=== PATIENT | male | born 1985 | race Caucasian/White ===

== ENCOUNTER 2016-12-11 16:20 | Inpatient (IN) ==
[2016-12-11] MEDS ORDERED: ROCEPHIN IM ONE (17:13)
[2016-12-11] MEDS ORDERED: DECADRON IM ONE (17:13)
[2016-12-11] MEDS ORDERED: XYLOCAINE-MPF 1% INJ ONE ×2 (17:13→17:20)
--- NOTE | 2016-12-11 17:15 | PROVIDER DOCUMENTATION ---
Addendum entered and electronically signed by Guerita Chen CRNP 12/12/16 03: 06: Progress - PLAN OF CARE/RESULTS Progress/Plan/Lab Results: After the patient returned from CT in [place] the radiologist called and states the patient had a 5 cm abscess extending from the vocal cords deep into the mediastinum with phlegmans and reactive adenopathy. He recommended immediate intubation. Dr. Montoya notified and he states that is beyond his capabilities and would like the patient sent to [facility]. The patient was moved to room 13 and anesthesia was called for intubation. The patient was accepted for transfer to [facility] by Dr. Jorgensen and it was to be an ER to ER transfer. Dr. Cruz arrived to the ED and the patient at this point states he wants to leave and he doesn't believe that he really needs all the things the ED staff was saying he needed. The severity of the condition was explained to the patient multiple times and he is still refusing any further treatment and state he is going to leave and seek a second opinion. The patients family arrived at the ED and spoke with the patient whom still refused any further treatment and again wants to leave AMA. The patient signed the appropriate forms and left the ED. Dr. Jorgensen at [facility] notified of the change. Departure - Departure Time of Disposition Order: 03:06 DIAGNOSIS: Strep pharyngitis, Tonsillar abscess Disposition: AGAINST MEDICAL ADVICE Certified Medical Emergency: Emergent Condition: Stable Original Note: HPI-EENT General - General Chief Complaint: Sore Throat Stated Complaint: SORE THROAT/CONGESTION Time Seen by Provider: 12/11/16 16:58 Source: patient, family Allergies/Adverse Reactions: Patient Allergies Allergy/AdvReac Type Severity Reaction Status Date / Time No Known Allergies Allergy Verified 12/11/16 17:02 - History of Present Illness-EENT General Nature of Presenting Problem: Pt is a 31 y/o male c chief complaint of sore swollen tonsils x 2 days. Pt states the swelling is primarily on the R. Last week he had swelling to the L. Pt has noted difficulty swallowing oral secretions today. Pt has a h/o morbid obesity. On arrival, pt is in minimal distress. Review of Systems - Adult - REVIEW OF SYSTEMS - ADULT Constitutional: reports: no symptoms reported. denies: chills, fatique Eyes: reports: no symptoms reported. denies: blurred vision, double vision Ears, Nose, Mouth & Throat: reports: mouth swelling, hoarseness, throat pain, throat swelling. denies: ear pain, nose pain Cardiovascular: reports: no symptoms reported. denies: chest pain, orthopnea Respiratory: reports: no symptoms reported. denies: cough, shortness of breath Gastrointestinal: reports: no symptoms reported. denies: abdominal pain, nausea Genitourinary: reports: no symptoms reported. denies: dysuria, hematuria Musculoskeletal: reports: no symptoms reported. denies: joint pain, joint swelling Integumentary: reports: no symptoms reported Neurological: reports: no symptoms reported. denies: ataxia, loss of balance, numbness Psychiatric: reports: no symptoms reported. denies: anxiety, emotional problems Endocrine: reports: no symptoms reported. denies: cold intolerance, heat intolerance Hematologic/Lymphatic: reports: no symptoms reported. denies: blood clots, low blood count Allergic/Immunologic: reports: no symptoms reported. denies: eczema, hives All Other Systems: Reviewed and Negative Past History - Adult - PAST MEDICAL HISTORY-ADULT Review of Records: reports: Old Records Reviewed, Nursing Assessment Review, Medications Reviewed, Social history reviewed & non-contributory. Major Childhood Illnesses: reports: denies history Cardiovascular: reports: denies history Respiratory: reports: denies history Gastrointestinal: reports: denies history Obstetrical/Gynecological: reports: denies history Genitourinary: reports: denies history Musculoskeletal: reports: denies history Neurological: reports: denies history Endocrine/Immune: reports: denies history Other Conditions: reports: denies history - PRIOR SURGERIES/PROCEDURES Surgical/Procedure History: reports: other ([facility] left lower ext 2004) - PRIOR HOSPITALIZATIONS Prior Hospitalizations: reports: none - IMMUNIZATION STATUS Childhood Immunizations: UTD, See Nurse Assessment Flu Vaccine: See Nurse Assessment - FAMILY HISTORY Family History: reviewed, not pertinent - SOCIAL HISTORY Smoking: denies Substance Use: none/never Alcohol Use Frequency: never Living Situation: family Physical Exam- EENT - Physical Exam EENT Initial Vital Signs Reviewed: Yes General Appearance: appears well, alert, no apparent distress Eye Exam: bilateral eye: normal inspection, PERRL, EOMI Ear Exam: bilateral ear: auricle normal, canal normal, TM normal Nasal Exam: normal inspection Throat Exam: dental tenderness, pharynx swelling, pharynx tenderness, tonsillar exudate, tonsillar swelling, uvula swelling, voice changes Neck: supple, tender lateral. negative: trachial deviation Respiratory: chest non-tender, lungs clear, normal breath sounds Cardiovascular: normal peripheral pulses, regular rate, rhythm, no edema Abdominal Exam: normal bowel sounds, non tender, soft Back Exam: normal inspection, no CVA tenderness, no vertebral tenderness Extremity: normal range of motion, non-tender, normal gait Integumentary: normal color, normal turgor, warm/dry Neurologic: grossly normal, no motor/sensory deficits Psych/Mental Status: normal mood/affect, normal thought content, normal thought process, oriented x 3 Progress - PLAN OF CARE/RESULTS Progress/Plan/Lab Results: Orders Category Date Time Status Admit - [facility] Routine AdmDCTranf 12/11/16 20:34 Ordered Activity - Bed Rest with BRP ORDERED Care 12/11/16 20:34 Active Call Admitting on Arrival AT ADMISSION Care 12/11/16 20:35 Active Resuscitation Status Routine Care 12/11/16 20:34 Ordered Saline Loc NOW Care 12/11/16 17:19 Active Vital Signs Order ROUTINE Care 12/11/16 20:34 Active NPO Diet 12/11/16 20:37 Active BASIC METABOLIC PANEL [CHEM] Stat Lab 12/11/16 17:43 Completed CBC WITH ELECTRONIC DIFF [HEME] Stat Lab 12/11/16 17:43 Completed INFLUENZA SCREEN A/B Stat Lab 12/11/16 16:35 Completed Strep [DIRECT STREP] Stat Lab 12/11/16 16:35 Completed 0.9% Sodium Chloride Inj [Ns] 1,000 ml Med 12/11/16 20:45 Active IV 90 mls/hr Ampicillin/Sulbactam 3 gm/Ns [Unasyn 3 gm/Ns] 100 ml Med 12/11/16 20:45 Active IV Q6H CefTRIAXONE 1 GM/NS [Rocephin 1 gm/Ns] 50 ml Med 12/11/16 17:50 Discontinued IV NOW CefTRIAXONE [Rocephin] Med 12/11/16 17:13 Discontinued 1 gm IM NOW ONE CefTRIAXONE [Rocephin] Med 12/11/16 17:20 Discontinued 1 gm IV NOW ONE Clindamycin 900 mg/Ns 50 ml Med 12/11/16 20:45 Active IV Q8H Dexamethasone [Decadron] Med 12/11/16 17:13 Discontinued 10 mg IM NOW ONE Dexamethasone [Decadron] Med 12/11/16 17:19 Discontinued 10 mg IV NOW ONE Dexamethasone [Decadron] Med 12/11/16 20:45 Active 4 mg IV Q6H Hydromorphone [Dilaudid] Med 12/11/16 17:42 Discontinued 1 mg IV NOW ONE Lidocaine 1% Pf [Xylocaine-Mpf 1%] Med 12/11/16 17:13 Discontinued 5 ml INJ NOW ONE Lidocaine 1% Pf [Xylocaine-Mpf 1%] Med 12/11/16 17:20 Discontinued 5 ml INJ NOW ONE Morphine Med 12/11/16 20:34 Active 2 mg IV Q2H PRN PRN Ondansetron [Zofran] Med 12/11/16 20:34 Active 4 mg IV Q4H PRN PRN Promethazine [Phenergan] Med 12/11/16 17:43 Discontinued 12.5 mg IV NOW ONE Sodium Chloride 0.9% Med 12/11/16 17:43 Discontinued 10 ml INJ NOW ONE Oxygen Device Routine Oth 12/11/16 20:36 Active Telemetry [OM.EQ] Routine Oth 12/11/16 20:34 Active Transfer/Admit Order [TRANSFER] Routine Transfer 12/11/16 21:12 Ordered Laboratory Tests 12/11/16 12/11/16 17:43 17:43 WBC 21.76 H RBC 5.36 Hgb 16.9 Hct 49.7 MCV 92.7 MCH 31.5 H MCHC 34.0 RDW Std Deviation 13.0 Plt Count 237 MPV 9.9 Immature Gran % (Auto) 0.5 Neut % (Auto) 80.1 H Lymph % (Auto) 10.2 L Rapides % (Auto) 8.5 Eos % (Auto) 0.5 Baso % (Auto) 0.2 Immature Gran # (Auto) 0.11 H Neut # (Auto) 17.44 H Lymph # (Auto) 2.23 Rapides # (Auto) 1.84 H Eos # (Auto) 0.10 Baso # (Auto) 0.04 Sodium 132 L Potassium 4.1 Chloride 91 L Carbon Dioxide 28 Anion Gap 13 BUN 5 L Creatinine 0.5 L Estimated GFR/1.73 m2 > 60 BUN/Creatinine Ratio 10 Glucose 116 H Calculated Osmolality 263 Calcium 9.7 Vital Signs - 24 hr 12/11/16 16:29 Temperature 98.4 F Pulse Rate 87 Respiratory 20 Rate Blood Pressure 162/78 O2 Sat by Pulse 95 Oximetry - REASSESSMENT Reassessment #1 Time Reassessed: 19:23 ([address] Dr[address] Montoya 2x. We are waiting for a response. Pt is too heavy to fit on the CT scanner. ) Reassessment #2 Time Reassessed: 19:45 (Dr. Montoya's answering service called back asking if he had called. I informed them he had not called yet. I updated family on plan of care. ) Reassessment #3 Time Reassessed: 20:29 (Dr. Montoya at bedside discussing admission vs. surgery.) Reassessment #4 Time Reassessed: 21:04 (Pt has agreed to stay as an in-patient. Dr. Montoya would like to have a CT scan of neck to determine surgical need tonight vs. more conservative therapy. The max wt. of the ct scanner at [facility] is 450lbs. has a scanner that can fit 500lbs. Dr. Montoya will admit to his service. Pt would go to the ICU however there are no ICU beds available. Pt will stay in the ER holding. Dr. Montoya and I discussed the plan to transport the pt to for a CT scan then return to [facility] with the ER charge nurse and Pete MCCARTNEY. While the pt is admitted to Dr. Montoya, Pete Chen will continue to assist in the obtaining of CT and relaying of that information to Dr. Lindsay plata. ) Reassessment #5 Time Reassessed: 21:09 (Pt is stable and was moved to room 1 in the main ED.) - CONSULTS/PCP/HOSPITALIST Notification #1 *Consult/PCP/Hospitalist*: Dr. Montoya (ENT) Time Discussed: 20:15 (Will come into the ER to see pt. ) - CHANGE OF SHIFT REPORT (ED Provider) Report Given and Care Transferred to:: Pete MCCARTNEY Time of Transfer: 21:10 (Pt admitted to Dr. Montoya (ENT). Pete Chen will relay results of CT at to Dr. Montoya.) Items Pending: CT/MRI Results, Physician Consult/Arrival Departure - Departure Time of Disposition Order: 20:29 DIAGNOSIS: Strep pharyngitis, Tonsillar abscess Disposition: ADMITTED INPATIENT 09 Certified Medical Emergency: Emergent Condition: Stable Attestation - Physician/ SHAWN Attestation Patient care was provided by Advanced Practice Provider:: Yes Advanced Practice Provider:: Kennedy Chambers Advanced Practice Provider documentation review:: The Mid-level provider documentation, treatment plan and medical decision making was reviewed by the physician who agrees with all treatment and medical decision making by the MLP. The physician spent face to face time with patient:: Yes
[2016-12-11] MEDS ORDERED: DECADRON IV ONE (17:19)
[2016-12-11] MEDS ORDERED: ROCEPHIN IV ONE (17:20)
[2016-12-11] MEDS ORDERED: DILAUDID IV ONE (17:42)
[2016-12-11] MEDS ORDERED: SODIUM CHLORIDE 0.9% INJ ONE (17:43)
[2016-12-11] MEDS ORDERED: PHENERGAN IV ONE (17:43)
[2016-12-11] MEDS ORDERED: ROCEPHIN 1 GM/NS 50 ML IV ONE (17:50)
[2016-12-11 18:05] LABS: BASO% 0.2 % (0.0-0.8); EOS% 0.5 % (0.0-10.0); HEMATOCRIT 49.7 % (42.0-52.0); HEMOGLOBIN 16.9 g/dL (14.0-18.0); IMM GRAN# 0.11 X1000 (0.0-0.04); IMM GRAN% 0.5 % (0.0-0.5); LYMPH# 2.23 X1000 (1.2-3.4); LYMPH% 10.2 % (20.5-51.1); MANUAL DIFF NEEDED? NO; MCH 31.5 PG (27-31); MCV 92.7 FL (81-99); MONO# 1.84 X1000 (0.11-0.59); MONO% 8.5 % (1.7-9.3); MPV 9.9 FL (7.4-10.4); NEUT% 80.1 % (42.2-75.2); PLT 237 X1000 (130-400); RBC 5.36 XMIL (4.7-6.1)
[2016-12-11 18:14] LABS: AGAP 13; BUN 5 mg/dL (8-22); CALCIUM 9.7 mg/dL (8.8-10.2); CHLORIDE 91 mmol/L (98-107); COSMO 263; POTASSIUM 4.1 mmol/L (3.5-5.1); SODIUM 132 mmol/L (136-145); TCO2 28 mmol/L (25-35)
[2016-12-11] MEDS ORDERED: ZOFRAN IV PRN (20:34)
[2016-12-11] MEDS ORDERED: MORPHINE IV PRN (20:34)
[2016-12-11] MEDS ORDERED: DECADRON IV SCH (20:45)
[2016-12-11] MEDS ORDERED: CLINDAMYCIN 900 MG/NS 50 ML IV SCH (20:45)
[2016-12-11] MEDS ORDERED: NS 1,000 ML IV SCH (20:45)
[2016-12-12] MEDS: SODIUM CHLORIDE IV SCH ×2 (00:25→02:45)
[2016-12-12] MEDS: SULBACTAM IV SCH ×2 (00:25→02:45)
[2016-12-12] MEDS: AMPICILLIN IV SCH ×2 (00:25→02:45)
[2016-12-12 01:30] VITALS: BP 110/57
[2016-12-12] MEDS ORDERED: QUELICIN IV ONE (02:05)
[2016-12-12] MEDS ORDERED: AMIDATE IV ONE (02:05)
[2016-12-12] MEDS ORDERED: AMIDATE ONE (02:06)
[2016-12-12] MEDS ORDERED: NS 1,000 ML ONE (02:07)
[2016-12-12] MEDS ORDERED: QUELICIN ONE (02:07)
--- NOTE | 2016-12-12 04:22 | HISTORY AND PHYSICAL ---
HISTORY OF PRESENT ILLNESS: A 31-year-old who 1 week ago developed left-sided throat pain. This resolved after he took some Keflex that his girlfriend had and then developed right-sided throat pain. He has had poor p.o. intake. Denies airway problems. Has noticed increased work of breathing. States he usually has one episode of tonsillitis a year. Has had no odynophagia, no real dysphagia, though has not eaten today. PAST SURGICAL HISTORY: None. PAST MEDICAL HISTORY: Morbid obesity. MEDICATIONS: None. ALLERGIES: None. REVIEW OF SYSTEMS: Snores. Probable sleep apnea, though no sleep study. Denies diabetes, hypertension, liver disease, thyroid disease, asthma. PHYSICAL EXAMINATION: GENERAL: Morbidly obese white male. Minimal to mild increased work of breathing. NOSE: Clear anteriorly. OROPHARYNX: Tonsils 4+ with erythema. No definite abscess. Floor of mouth clear. Uvula with minimal to mild edema. NECK: Fullness, right neck. Enlarged adenopathy. Minimal tenderness. CARDIOVASCULAR: Normal sinus rhythm. CHEST: Clear. ABDOMEN: Obese. IMPRESSION: Acute tonsillitis, no definite abscess appreciated. Cannot fully evaluate for deep neck abscess. Unable to obtain CT scan due to patient's size. Patient would like to go home. PLAN: Have stressed to patient he needs to be admitted. Found CT scanner in [place] that will accommodate patient. Will send over there for CT scan. Further decisions based on results of CT. Will begin clindamycin and Unasyn along with IV Decadron. Will be admitted to ICU care setting.
== END 2016-12-12 03:05 | disposition left against medical advice (07) | DRG 153 ==
LOC: ED 16:20 → EDIPHOLD 22:15
PROVIDERS: ADMIT Otolaryngology; ATTEND Otolaryngology
DX: J36 Peritonsillar abscess (principal); E66.01 Morbid (severe) obesity due to excess calories; G47.30 Sleep apnea, unspecified
CPT/HCPCS: 80048; 85025; 87430; 87804; J0295; J0330; J0696; J1100; J1170; J2270; J2550; J7030; S0077

== ENCOUNTER 2019-04-06 10:01 | Inpatient (IN) ==
[2019-04-06] MEDS ORDERED: DECADRON IV ONE (10:23)
[2019-04-06] MEDS ORDERED: DUONEB (A & A) INH ONE (10:23)
[2019-04-06 10:56] LABS: BASO# 0.04 X1000 (0.0-0.2); BASO% 0.3 % (0.0-0.8); EOS% 2.1 % (0.0-10.0); HEMATOCRIT 47.7 % (42.0-52.0); HEMOGLOBIN 15.1 g/dL (14.0-18.0); IMM GRAN# 0.03 X1000 (0.0-0.04); IMM GRAN% 0.2 % (0.0-0.5); LYMPH# 2.21 X1000 (1.2-3.4); LYMPH% 15.8 % (20.5-51.1); MCH 29.3 PG (27-31); MCHC 31.7 g/dL (33-37); MCV 92.6 FL (81-99); MONO# 1.02 X1000 (0.11-0.59); MONO% 7.3 % (1.7-9.3); MPV 9.9 FL (7.4-10.4); NEUT# 10.36 X1000 (1.4-6.5); NEUT% 74.3 % (42.2-75.2); PLT 188 X1000 (130-400); RBC 5.15 XMIL (4.7-6.1); RDW 16.7 % (11.5-14.5); WBC 13.96 X1000 (4.8-10.8)
[2019-04-06 11:01] LABS: AGAP 9; ALB/GLOB RATIO 0.9; ALBUMIN 3.8 g/dL (3.5-5.0); ALKALINE PHOSPHATASE 67 U/L (32-122); BUN 10 mg/dL (8-22); CALCIUM 9.3 mg/dL (8.8-10.2); CHLORIDE 96 mmol/L (98-107); COSMO 277; CREATININE 0.5 mg/dL (0.7-1.2); ESTIMATED GFR > 60; GLUCOSE 145 mg/dL (70-104); GOT 14 U/L (10-34); GPT 15 U/L (10-44); POTASSIUM 4.1 mmol/L (3.5-5.1); SODIUM 138 mmol/L (136-145); TCO2 33 mmol/L (25-35); TOTAL BILIRUBIN 0.78 mg/dL (0.20-1.00)
[2019-04-06] MEDS ORDERED: BICILLIN L-A IM ONE (11:48)
--- NOTE | 2019-04-06 11:58 | Diag Imaging Result Doc PS360 ---
CHEST-2 VIEWS - 04/06/2019 INDICATION: short of breath COMPARISON: None FINDINGS: The lungs are normally expanded and clear. Heart size and mediastinal contours are normal. No pneumothorax or pleural effusion. IMPRESSION: Negative exam. Electronically signed by Connor Ruff 04/06/2019 11:55 AM
--- NOTE | 2019-04-06 11:59 | Diag Imaging Result Doc PS360 ---
NECK AP AND/OR LAT SOFT TISSUE - 04/06/2019 INDICATION: throat swelling TECHNIQUE: Two views COMPARISON: None FINDINGS: The soft tissues of the neck are normal. The epiglottis is grossly normal. IMPRESSION: Negative exam. Electronically signed by Connor Ruff 04/06/2019 11:56 AM
[2019-04-06 12:15] LABS: INR 1.01; PROTIME 14.1 Seconds (11.0-16.0)
[2019-04-06 13:24] LABS: ALLEN TEST YES; BE 7.5 mmoll (-3.0-3.0); BLOOD TYPE ARTERIAL; HCO3-(ACT) 30.5 mmoll (20.0-26.0); METHB 1.6 % (0.0-1.5); O2(CT) 19.4 mL/dL (15.0-23.0); PO2(98.6) 57 mmHg (60-100); SAMPLE BLOOD; SAO2 92.6 % (95.0-100.0); THB 15.5 g/dL (11.5-17.4); pH(98.6) 7.37 (7.35-7.45)
[2019-04-06 13:26] LABS: PCO2(98.6) 61 mmHg (35-45)
[2019-04-06 13:27] LABS: MODALITY CANNULA; O2HB 89.1 % (95.0-99.0)
[2019-04-06 13:37] LABS: URINE SOURCE CLEAN CATCH
[2019-04-06 13:43] LABS: BILIRUBIN URINE NEGATIVE (NEGATIVE); COLOR YELLOW; GLUCOSE URINE NEGATIVE (NEGATIVE); KETONE URINE NEGATIVE (NEGATIVE); TURBIDITY URINE CLEAR (CLEAR)
[2019-04-06 13:44] LABS: BLOOD URINE NEGATIVE (NEGATIVE); LEUKOCYTES URINE NEGATIVE (NEGATIVE); NITRITE URINE NEGATIVE (NEGATIVE); PH URINE 7.5; PROTEIN URINE NEGATIVE (NEGATIVE); SP GRAVITY URINE 1.006; UROBILINOGEN URINE NORMAL (NORMAL)
[2019-04-06 13:45] LABS: UR EPITHELIAL CELLS <10 /HPF (<10); URINE BACTERIA NEGATIVE /HPF; URINE RBC <10 /HPF (<10); URINE WBC <10 /HPF (<10)
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
[2019-04-06] MEDS ORDERED: ZOFRAN IV PRN (14:12)
[2019-04-06] MEDS ORDERED: DUONEB (A & A) INH PRN (14:12)
[2019-04-06 14:42] LABS: HEMOGLOBIN A1C 6.4 % (4.8-6.0)
[2019-04-06] MEDS: DUONEB (A & A) INH SCH ×3 (15:39→22:45)
--- NOTE | 2019-04-06 16:38 | HISTORY AND PHYSICAL ---
CHIEF COMPLAINT: Sore throat. HISTORY OF PRESENT ILLNESS: Mr. Mendoza is a 33-year-old male who claims no past medical history. He is morbidly obese at 504 pounds, probably undiagnosed sleep apnea hypoventilation syndrome. He reported to the ED with 2 days' history of sore throat and fever. While in the ED talking, his O2 saturations dropped to 87% on room air. He was placed on supplemental O2, and anytime he takes his O2 off, he drops down to around 87% to 86%. He was found with positive Streptococcus. He was given IM antibiotics and Decadron. He reports he has had 1 episode of this a few years back, had to be placed in the ICU at [facility] because his reasoning was "the antibiotics don't work on (him)." We wanted to do a CTA or V/Q scan to rule out a D- dimer. However, secondary to his size, we were unable to obtain. We will get venous Dopplers to rule out any DVT. ABG showed hypoxic hypercapnic, which is probably around the patient's baseline. However, he feels that he is in his normal state of health besides his throat issues. We will admit him to [facility] overnight with a Pulmonology consult and continue him on supplemental O2 and recheck his ABG and chest x-ray in the a.m. PAST MEDICAL HISTORY: Denies any history. Morbid obesity. PAST SURGICAL HISTORY: Surgery for pyloric stenosis. SOCIAL HISTORY: [facility] is [facility]. FAMILY HISTORY: Unknown. ALLERGIES: None. HOME MEDICATIONS: None. REVIEW OF SYSTEMS: Completely negative except for those mentioned in HPI. PHYSICAL EXAMINATION: VITAL SIGNS: Temperature is 98.3 degrees, heart rate 97, respirations 20, blood pressure 148/77, O2 is 90% on room air. GENERAL: Mr. Mendoza is a morbidly obese 33-year-old male, who is sitting on the side of the bed and speaking with the guard. He does not appear in any acute distress. HEENT: Atraumatic, normocephalic. PERRL. NECK: Really thick. Hard to assess. CARDIOVASCULAR: S1, S2 appreciated. No murmurs, gallops, or rubs noted. RESPIRATORY: Lung sounds clear bilaterally. ABDOMEN: Obese. Positive bowel sounds 4 quadrants. NEUROLOGIC: No focal deficits noted. DIAGNOSTIC DATA: Chest x-ray was a negative exam. Neck x-ray showed soft tissue of the neck was normal. The epiglottis was grossly normal. Negative exam. White count 13, hemoglobin 15, hematocrit 47, platelet count 188,000. Sodium 138, potassium 4.1, BUN 10, creatinine 0.5, blood glucose is 145. ASSESSMENT AND PLAN: 1. Hypoxemic hypercapnic respiratory failure. However, I do believe that this is the patient's baseline. We are going to try to rule him out for PE; however, due to his morbid obesity, he exceeds the weight limit for V/Q scan or CTA. We will do venous Dopplers. He does have probable sleep apnea. The patient has been told that he stops breathing in his sleep as well as probable hypoventilation syndrome. We will ask Dr. Rutledge with Pulmonology for his input. 2. Streptococcal pharyngitis. He was given a shot of IV penicillin and Decadron. We will continue with p.o. Amoxil. 3. Probable sleep apnea. The patient has not had any formal workup. 4. Probable hypoventilation syndrome. 5. Morbid obesity. The patient will need continued counseling on diet and exercise. 6. Elevated D-dimer. We will assess with venous Dopplers. Patient's morbid obesity limits him from getting a CTA or V/Q scan at this time. Follow up pending laboratory, diagnostics, and physician evaluation. Dictated by BIB Maldonado for Casie Adorno MD cc: Casie Adorno MD
[2019-04-06] MEDS: HUMULIN R SUBQ SCH (20:28)
[2019-04-06] MEDS: LOVENOX SUBQ SCH (20:29)
[2019-04-06] MEDS: TYLENOL PO PRN (20:37)
--- NOTE | 2019-04-06 22:24 | PULMONOLOGY CONSULTATION ---
DATE: 04/06/2019 REASON FOR CONSULTATION: Hypoxemic and hypercapnic respiratory failure with strep throat. HISTORY OF PRESENT ILLNESS: Mr. Mendoza is an incarcerated, 33-year-old male with morbid obesity and a BMI of 69, tobacco use prior to incarceration, with history of tonsillitis requiring transport to [facility], who presented to the emergency room with a 2-day history of sore throat and fever. Streptococcal rapid antigen was performed which was positive. Arterial blood gas performed on 5 L per nasal cannula revealed pH 7.37, pCO2 of 61, pO2 of 57. PAST MEDICAL HISTORY/PROBLEM LIST: 1. Morbid obesity with BMI of 69, as per above. 2. Prior treatment for tonsillitis. 3. History of pyloric stenosis. 4. Hypertension. SOCIAL HISTORY: The patient is currently incarcerated. He reports tobacco use. FAMILY HISTORY: Unknown by the patient. REVIEW OF SYSTEMS: Notable for dyspnea on exertion which is chronic. Recent onset difficulty with swallowing. PHYSICAL EXAMINATION: General: Exam reveals a morbidly obese, white male, sitting on the side of his bed eating a popsicle. The patient is conversant with a clear voice. Vital Signs: BP 125/69, heart rate 81, respiratory rate 16 to 20, oxygen saturation 99% on 40% face mask. HEENT: Pupils are equal and reactive. Oropharynx reveals poor dentition with missing and carious teeth. The patient has generous tonsils bilaterally with no evidence of airway obstruction. There is mild erythema in the posterior pharynx. Neck: Thick and supple. Chest: Reveals good air entry bilaterally without wheezing or rhonchi. Cardiac: Regular rate, normal S1, normal S2. Abdomen: Obese and soft. Extremities: Reveal chronic venous insufficiency. LABORATORIES: White blood count 13.9, hemoglobin 15.1, platelet count 188,000. Arterial blood gas as per HPI. Chemistry: Sodium 138, potassium 4.1, chloride 96, bicarbonate 33, BUN 10, creatinine 0.5, glucose 145. Chest x-ray with no evidence of acute disease. Soft tissues of the neck, no evidence of acute disease. IMPRESSION: A 33-year-old with: 1. Chronic hypoxemic and chronic hypercapnic respiratory failure. 2. Acute streptococcal pharyngitis. 3. Super morbid obesity. 4. Poor dentition. 5. Chronic venous insufficiency of the lower extremities. RECOMMENDATION: 1. Agree with antibiotics as you are doing. 2. Wean oxygen as tolerated. It is not clear that he can be on oxygen while in long term and this will have to be worked out through [employer]. 3. Smoking cessation is recommended. 4. Recommend outpatient sleep apnea evaluation. 5. Long-term, patient survival is extremely poor if he cannot lose weight either on his own or through some surgical intervention. cc: Buddy Rutledge MD
[2019-04-07] MEDS: DUONEB (A & A) INH SCH ×6 (03:23→23:27)
[2019-04-07 04:53] LABS: ALLEN TEST YES; BE 7.2 mmoll (-3.0-3.0); BLOOD TYPE ARTERIAL; HCO3-(ACT) 30.4 mmoll (20.0-26.0); METHB 1.1 % (0.0-1.5); O2(CT) 20.1 mL/dL (15.0-23.0); O2HB 93.4 % (95.0-99.0); PO2(98.6) 79 mmHg (60-100); SAMPLE BLOOD; SAO2 96.6 % (95.0-100.0); THB 15.3 g/dL (11.5-17.4)
[2019-04-07 04:55] LABS: MODALITY VENTIMASK; PCO2(98.6) 75 mmHg (35-45)
[2019-04-07] MEDS: PRILOSEC PO SCH ×2 (05:13→06:08)
[2019-04-07 05:39] LABS: BASO# 0.02 X1000 (0.0-0.2); BASO% 0.2 % (0.0-0.8); HEMATOCRIT 48.7 % (42.0-52.0); HEMOGLOBIN 15.2 g/dL (14.0-18.0); IMM GRAN# 0.03 X1000 (0.0-0.04); IMM GRAN% 0.2 % (0.0-0.5); LYMPH% 8.9 % (20.5-51.1); MCH 29.5 PG (27-31); MCHC 31.2 g/dL (33-37); MCV 94.4 FL (81-99); MONO% 5.7 % (1.7-9.3); MPV 10.1 FL (7.4-10.4); PLT 216 X1000 (130-400); RBC 5.16 XMIL (4.7-6.1); RDW 16.1 % (11.5-14.5); WBC 12.35 X1000 (4.8-10.8)
[2019-04-07 06:01] LABS: AGAP 9; BUN 10 mg/dL (8-22); CALCIUM 9.4 mg/dL (8.8-10.2); CHLORIDE 95 mmol/L (98-107); COSMO 278; CREATININE 0.5 mg/dL (0.7-1.2); ESTIMATED GFR > 60; GLUCOSE 152 mg/dL (70-104); POTASSIUM 4.2 mmol/L (3.5-5.1); SODIUM 138 mmol/L (136-145); TCO2 34 mmol/L (25-35)
[2019-04-07] MEDS: HUMULIN R SUBQ SCH ×4 (06:07→21:57)
[2019-04-07] MEDS: AMOXIL PO SCH ×2 (08:32→21:57)
[2019-04-07] MEDS: NORCO-5 PO PRN ×2 (08:54→17:39)
[2019-04-07] MEDS ORDERED: CHLORASEPTIC SPRAY MT PRN (08:56)
--- NOTE | 2019-04-07 11:00 | ECHO REPORT ---
ORDER DATE: 04/06/2019 SUMMARY: 1. Very difficult study for interpretation due to very limited acoustic window quality. Intravenous echo contrast agent Optison was utilized to enhance endocardial definition. 2. Aortic valve is not well imaged, but appears to open adequately on 2-dimensional images. Peak gradient across the aortic valve is 18 mmHg and is likely elevated due to hyperdynamic left ventricle. There does not appear to be any significant aortic stenosis. Mitral and tricuspid valves are without gross structural abnormality. Pulmonic valve is not seen. There appears to be at least mild tricuspid regurgitation which is not well imaged on color Doppler. The estimated systolic PA pressure by Doppler is 50 mmHg, suggesting moderate pulmonary hypertension. The aortic root is grossly normal in size. 3. Normal left ventricular chamber size with probable mild concentric left ventricular hypertrophy. Estimated left ventricular ejection fraction appears to be at least 75% with left ventricle appearing hyperdynamic. No focal wall motion abnormality can be appreciated. Left atrium, right atrium, and right ventricle are grossly normal in size with grossly preserved right ventricular systolic function. 4. No pericardial effusion. 5. Inferior vena cava not well demonstrated. CONCLUSIONS: 1. Very difficult study for interpretation. 2. At least mild tricuspid regurgitation with moderate pulmonary hypertension. 3. Probable mild concentric left ventricular hypertrophy with hyperdynamic left ventricle and estimated ejection fraction of at least 75%. cc: Storm Benitez MD
--- NOTE | 2019-04-07 12:52 | PROGRESS NOTE ---
DATE: 04/07/2019 SUBJECTIVE: The patient is sitting at the edge of the bed. He states that he feels fine. He denies having any shortness of breath. OBJECTIVE: Vital Signs: Temperature 97.6 degrees, blood pressure 131/55, heart rate 77, respirations 19, O2 saturation 99% on 3 L nasal cannula. General: This is a morbidly obese male sitting at the edge of the bed in no acute distress. Head: Normocephalic, atraumatic. Heart: S1, S2 normal. Regular rate and rhythm. Lungs: Equal air entry bilaterally. No crackles. No rales. Abdomen: Positive bowel sounds. Soft, nontender, nondistended. Extremities: The patient has chronic venous stasis involving both legs. Neurologic: The patient is alert and oriented x4. LABS: White blood cell count 12, hemoglobin 15, hematocrit 48, platelets 216. ABG: The pH is 7.3, pCO2 75, PO2 79, bicarbonate 30. Sodium 138, potassium 4.2, chloride 95, CO2 34. BUN 10, creatinine 0.5, glucose 152. ASSESSMENT AND PLAN: 1. Acute on chronic hypoxemic and hypercapnic respiratory failure. Multifactorial. The patient is morbidly obese. He also has moderate pulmonary hypertension. We will continue with supplemental oxygen. 2. Streptococcal pharyngitis. Continue with antibiotic therapy. 3. Suspected obstructive sleep apnea. The patient has been counseled about weight loss and proper diet. He will likely require a sleep study as outpatient once he is out of half-way. 4. Suspected hypoventilation syndrome. Aware. 5. Leukocytosis. Improved. 6. Diabetes mellitus type 2. Will consult the boarder steam. Start metformin. 7. Gastrointestinal prophylaxis. Continue on Prilosec. 8. Deep vein thrombosis prophylaxis. Continue on Lovenox. cc: Casie Adorno MD MTDD
[2019-04-07] MEDS: GLUCOPHAGE PO SCH (17:35)
[2019-04-07] MEDS: LOVENOX SUBQ SCH (21:57)
[2019-04-08] MEDS: DUONEB (A & A) INH SCH ×6 (03:23→23:15)
[2019-04-08 04:39] LABS: ALLEN TEST YES; BE 6.7 mmoll (-3.0-3.0); BLOOD TYPE ARTERIAL; HCO3-(ACT) 30.1 mmoll (20.0-26.0); O2(CT) 20.7 mL/dL (15.0-23.0); O2HB 95.2 % (95.0-99.0); PO2(98.6) 99 mmHg (60-100); SAMPLE BLOOD; SAO2 98.3 % (95.0-100.0); THB 15.4 g/dL (11.5-17.4); pH(98.6) 7.24 (7.35-7.45)
[2019-04-08 04:40] LABS: MODALITY VENTIMASK; PCO2(98.6) 89 mmHg (35-45)
[2019-04-08 05:58] LABS: HEMOGLOBIN 15.1 g/dL (14.0-18.0); MCHC 30.8 g/dL (33-37); MCV 97.2 FL (81-99); MPV 9.9 FL (7.4-10.4); RBC 5.04 XMIL (4.7-6.1); RDW 16.6 % (11.5-14.5); WBC 13.02 X1000 (4.8-10.8)
[2019-04-08] MEDS: HUMULIN R SUBQ SCH ×4 (06:05→20:29)
[2019-04-08 06:16] LABS: AGAP 8; BUN 12 mg/dL (8-22); CALCIUM 9.4 mg/dL (8.8-10.2); CHLORIDE 95 mmol/L (98-107); COSMO 276; CREATININE 0.5 mg/dL (0.7-1.2); ESTIMATED GFR > 60; GLUCOSE 110 mg/dL (70-104); POTASSIUM 4.6 mmol/L (3.5-5.1); SODIUM 138 mmol/L (136-145); TCO2 35 mmol/L (25-35)
[2019-04-08] MEDS: PRILOSEC PO SCH (06:21)
[2019-04-08] MEDS: AMOXIL PO SCH ×2 (08:37→20:38)
[2019-04-08] MEDS: GLUCOPHAGE PO SCH ×2 (08:37→17:26)
[2019-04-08 08:39] LABS: BLOOD TYPE ARTERIAL; SAMPLE BLOOD
[2019-04-08 08:40] LABS: ALLEN TEST YES; BE 8.6 mmoll (-3.0-3.0); HCO3-(ACT) 31.1 mmoll (20.0-26.0); METHB 0.9 % (0.0-1.5); O2(CT) 16.8 mL/dL (15.0-23.0); SAO2 82.7 % (95.0-100.0); SRATE 16 BPM; pH(98.6) 7.21 (7.35-7.45)
[2019-04-08 08:41] LABS: MODALITY BI PAP; O2HB 80.1 % (95.0-99.0); PCO2(98.6) 103 mmHg (35-45); PO2(98.6) 47 mmHg (60-100)
[2019-04-08 10:22] LABS: BLOOD TYPE ARTERIAL; SAMPLE BLOOD
[2019-04-08 10:23] LABS: ALLEN TEST YES; BE 7.3 mmoll (-3.0-3.0); HCO3-(ACT) 30.6 mmoll (20.0-26.0); MODALITY BI PAP; O2(CT) 20.5 mL/dL (15.0-23.0); O2HB 96.6 % (95.0-99.0); PO2(98.6) 144 mmHg (60-100); SAO2 99.5 % (95.0-100.0); SRATE 20 BPM; THB 14.9 g/dL (11.5-17.4); pH(98.6) 7.23 (7.35-7.45)
[2019-04-08 10:24] LABS: PCO2(98.6) 93 mmHg (35-45)
[2019-04-08] MEDS ORDERED: LASIX IV ONE (11:21)
--- NOTE | 2019-04-08 12:55 | PROGRESS NOTE ---
DATE: 04/08/2019 SUBJECTIVE: The patient is sitting up at the edge of the bed. However, he is somewhat sleepy and lethargic. OBJECTIVE: Vital Signs: Temperature 97.8 degrees, blood pressure 138/65, heart rate 66, respirations 15, O2 saturation is 100% on BiPAP. General: This is a morbidly obese male sitting at the edge of the bed on BiPAP. HEENT: Head normocephalic, atraumatic. Heart: S1, S2 normal. Regular rate and rhythm. Lungs: Equal air entry bilaterally. Diminished breath sounds bilaterally. Abdomen: Obese, soft, nontender. Extremities: The patient has chronic venous stasis with trace edema. Neurologic: The patient is lethargic but will awaken and answer questions appropriately. LABORATORY DATA: White blood cell count 13, hemoglobin 15, hematocrit 49, platelets 187,000. ABG: pH 7.21, pCO2 89, PO2 99, bicarb 30. ASSESSMENT AND PLAN: 1. Acute on chronic hypoxemic and hypercapnic respiratory failure, multifactorial. The patient is now on BiPAP. Further management as per the ict project manager. 2. Suspected hypoventilation syndrome. Aware. 3. Morbid obesity. The patient has been counseled about weight loss and proper diet. 4. Diabetes mellitus type 2. Continue on metformin. 5. Streptococcus pharyngitis. Continue with antibiotic therapy. 6. Gastrointestinal prophylaxis. Continue on Prilosec. 7. Deep vein thrombosis prophylaxis. Continue on Lovenox. cc: Casie Adorno MD
[2019-04-08] MEDS: LOVENOX SUBQ SCH (20:38)
--- NOTE | 2019-04-08 20:54 | PULMONOLOGY PROGRESS NOTE ---
DATE: 04/08/2019 SUBJECTIVE: The patient is sitting on the side of the bed. He reports he is just waking up. The patient's oxygen saturation does drop in the evening and he has evidence of hypoxemic and hypercapnic respiratory failure, and his arterial blood gases will be reviewed below. He is without specific complaints now. OBJECTIVE: Blood pressure 138/65, heart rate 66, respiratory rate 15, oxygen saturation 100%. HEENT: Pupils are equal and reactive. Oropharynx appears clear. He has mild increase in tonsillar size, but the airway is patent and the erythema is decreasing. Neck is nontender. Chest reveals shallow breath sounds with crackles in the lung bases. Cardiac exam: S1, S2. Abdomen is obese. Extremities reveal chronic venous insufficiency. LABORATORY DATA: Arterial blood gas this morning revealed a pH of 7.24, pCO2 of 89, pO2 of 99 on 40% face mask. Arterial blood gas on BiPAP revealed a pH of 7.21, pCO2 of 103, pO2 of 47. Second arterial blood gas on BiPAP revealed a pH of 7.23, pCO2 of 93, pO2 of 144. IMPRESSION: A 33-year-old with morbid obesity, obstructive sleep apnea, pickwickian syndrome and moderate pulmonary hypertension identified on echocardiogram. The patient most likely has been having episodes of hypoxemic and hypercapnic respiratory failure at night for a long period of time, given his body habitus, but because he has not been in a hospital setting this has not been documented. He currently is on nasal cannula and is in no distress. RECOMMENDATIONS: 1. Avoid sedatives or pain medications. 2. Single dose of Lasix to see if he diureses. 3. Continue nocturnal BiPAP. 4. Long-term, the patient will need to lose weight and will need a sleep study. cc: Buddy Rutledge MD
--- NOTE | 2019-04-08 21:42 | Extremity Venous Study ---
PROCEDURE NAME: Venous U/S Bilateral Legs - 04/06/2019 CASTING ASSISTANT: Radha. REQUESTING PHYSICIAN: Kyree. INDICATION: Swelling in the legs. FINDINGS: Deep and superficial veins of bilateral lower extremities were visualized. This was a very limited study due to the patient weighing over 500 pounds, and the calf veins were incompletely identified. Otherwise, the veins visualized in the more proximal leg showed compressibility with flow, and no evidence of deep venous thrombus. SUMMARY: No obvious thrombus noted on this limited study. cc: MD Casie Bruno MD
[2019-04-08] MEDS: NORCO-5 PO PRN (22:07)
[2019-04-09] MEDS: DUONEB (A & A) INH SCH ×6 (03:07→23:18)
[2019-04-09 05:03] LABS: ALLEN TEST YES; BE 11.3 mmoll (-3.0-3.0); BLOOD TYPE ARTERIAL; HCO3-(ACT) 33.7 mmoll (20.0-26.0); O2(CT) 18.9 mL/dL (15.0-23.0); O2HB 94.8 % (95.0-99.0); PO2(98.6) 104 mmHg (60-100); SAMPLE BLOOD; THB 14.1 g/dL (11.5-17.4); pH(98.6) 7.25 (7.35-7.45)
[2019-04-09 05:06] LABS: MODALITY BI PAP; PCO2(98.6) 98 mmHg (35-45)
[2019-04-09 06:02] LABS: BASO# 0.03 X1000 (0.0-0.2); BASO% 0.3 % (0.0-0.8); EOS# 0.16 X1000 (0.0-0.7); EOS% 1.6 % (0.0-10.0); HEMATOCRIT 48.7 % (42.0-52.0); HEMOGLOBIN 14.8 g/dL (14.0-18.0); IMM GRAN# 0.04 X1000 (0.0-0.04); IMM GRAN% 0.4 % (0.0-0.5); LYMPH% 21.1 % (20.5-51.1); MCH 29.7 PG (27-31); MCHC 30.4 g/dL (33-37); MCV 97.8 FL (81-99); MONO# 0.75 X1000 (0.11-0.59); MONO% 7.6 % (1.7-9.3); MPV 9.7 FL (7.4-10.4); NEUT# 6.85 X1000 (1.4-6.5); PLT 193 X1000 (130-400); RBC 4.98 XMIL (4.7-6.1); WBC 9.93 X1000 (4.8-10.8)
[2019-04-09] MEDS: HUMULIN R SUBQ SCH ×4 (06:19→20:49)
[2019-04-09] MEDS: PRILOSEC PO SCH (06:22)
[2019-04-09 06:44] LABS: AGAP 6; BUN 12 mg/dL (8-22); CALCIUM 8.5 mg/dL (8.8-10.2); CHLORIDE 92 mmol/L (98-107); COSMO 277; CREATININE 0.5 mg/dL (0.7-1.2); ESTIMATED GFR > 60; GLUCOSE 127 mg/dL (70-104); POTASSIUM 4.8 mmol/L (3.5-5.1); SODIUM 138 mmol/L (136-145); TCO2 40 mmol/L (25-35)
[2019-04-09] MEDS: AMOXIL PO SCH ×2 (08:42→20:49)
[2019-04-09] MEDS: GLUCOPHAGE PO SCH ×2 (08:42→16:25)
[2019-04-09] MEDS ORDERED: LASIX IV ONE ×2 (09:50→18:00)
[2019-04-09] MEDS ORDERED: DIAMOX IV ONE (15:45)
--- NOTE | 2019-04-09 15:58 | PULMONOLOGY PROGRESS NOTE ---
DATE: 04/09/2019 SUBJECTIVE: The patient is sleeping on BiPAP. He appears to be comfortable. He does take his BiPAP off and eat without difficulty. OBJECTIVE: Vital Signs: The patient has been afebrile for the last 24 hours. Blood pressure 126/73, heart rate 72, respiratory rate 17, oxygen saturation 96% on BiPAP, which he is reluctant to use. HEENT: Pupils are equal and reactive. Oropharynx is clear. Neck: Neck is supple. Chest: Reveals good air entry bilaterally while on BiPAP. Cardiac exam: S1, S2. Abdomen: Obese and soft. Extremities: Reveal chronic venous insufficiency with edema. LABORATORIES: Sodium 138, potassium 4.8, chloride 92, bicarbonate 40. BUN 12, creatinine 0.5. Arterial blood gas reveals pH 7.25, pCO2 of 98, PO2 of 104 on BiPAP. IMPRESSION: A 33-year-old with morbid obesity, obstructive sleep apnea, Pickwickian syndrome, moderate pulmonary hypertension, chronic hypoxemic and chronic hypercapnic respiratory is suspected. I suspect that he has been having chronic hypoxemia and hypercapnia for a period of time, but this just has not been documented. RECOMMENDATION: 1. Avoid sedatives and pain medicines. 2. We will give a dose of Lasix and acetazolamide. 3. Continue nocturnal BiPAP. 4. Long-term, patient is to lose weight and undergo sleep study. cc: Buddy Rutledge MD
[2019-04-09] MEDS ORDERED: STERILE WATER INJ. ONE (16:29)
--- NOTE | 2019-04-09 18:25 | PROGRESS NOTE ---
DATE: 04/09/2019 SUBJECTIVE: The patient is sitting at the edge of the bed. He is currently on BiPAP. He is a little sleepy. OBJECTIVE: Vital signs: Temperature 98.2 degrees, blood pressure 126/73, heart rate 72, respirations 17, O2 saturation is 93% on BiPAP. General: This is a morbidly obese male sitting in bed in no acute distress.Heart: S1, S2 normal. Regular rate and rhythm. Lungs: Diminished breath sounds bilaterally. No wheezing. No rales. Abdomen: Positive bowel sounds. Soft, obese. Extremities: The patient has chronic venous stasis. LABORATORY DATA: ABG with pH of 7.25, pCO2 is 98, pO2 is 104, bicarbonate 33. Sodium 138, potassium 4.8, chloride 92, CO2 of 40, BUN 12, creatinine 0.5, glucose 127. ASSESSMENT AND PLAN: 1. Chronic hypoxemic and hypercapnic respiratory failure. Continue with the current treatment regimen as directed by Dr. Rutledge. 2. Streptococcus pharyngitis. Continue with antibiotic therapy. 3. Moderate pulmonary hypertension. Aware. 4. Pickwickian syndrome. Aware. 5. Obstructive sleep apnea. The patient will likely require a sleep study as outpatient. 6. Morbid obesity. The patient has been counseled about weight loss and proper diet. 7. Diabetes mellitus type 2. Continue on metformin and sliding scale insulin. 8. Deep vein thrombosis prophylaxis. Continue on Lovenox. cc: Casie Adorno MD MTDD
[2019-04-09] MEDS: LOVENOX SUBQ SCH (20:49)
[2019-04-10] MEDS: DUONEB (A & A) INH SCH ×6 (03:16→22:37)
[2019-04-10 04:53] LABS: ALLEN TEST YES; BLOOD TYPE ARTERIAL; HCO3-(ACT) 34.1 mmoll (20.0-26.0); O2(CT) 19.8 mL/dL (15.0-23.0); O2HB 91.5 % (95.0-99.0); PO2(98.6) 62 mmHg (60-100); SAMPLE BLOOD; SAO2 94.6 % (95.0-100.0); THB 15.4 g/dL (11.5-17.4); pH(98.6) 7.33 (7.35-7.45)
[2019-04-10 04:55] LABS: MODALITY BI PAP; PCO2(98.6) 80 mmHg (35-45)
[2019-04-10] MEDS: HUMULIN R SUBQ SCH ×5 (06:06→21:15)
[2019-04-10] MEDS: PRILOSEC PO SCH (06:30)
[2019-04-10 06:31] LABS: BASO# 0.03 X1000 (0.0-0.2); BASO% 0.2 % (0.0-0.8); EOS% 1.7 % (0.0-10.0); HEMATOCRIT 48.2 % (42.0-52.0); HEMOGLOBIN 14.9 g/dL (14.0-18.0); IMM GRAN# 0.04 X1000 (0.0-0.04); IMM GRAN% 0.3 % (0.0-0.5); LYMPH# 1.94 X1000 (1.2-3.4); LYMPH% 16.1 % (20.5-51.1); MCH 29.7 PG (27-31); MCHC 30.9 g/dL (33-37); MCV 96.2 FL (81-99); MONO# 1.17 X1000 (0.11-0.59); MONO% 9.7 % (1.7-9.3); MPV 10.5 FL (7.4-10.4); NEUT# 8.67 X1000 (1.4-6.5); PLT 197 X1000 (130-400); RBC 5.01 XMIL (4.7-6.1); RDW 15.2 % (11.5-14.5); WBC 12.05 X1000 (4.8-10.8)
[2019-04-10 06:47] LABS: AGAP 1; BUN 9 mg/dL (8-22); CALCIUM 9.2 mg/dL (8.8-10.2); CHLORIDE 91 mmol/L (98-107); COSMO 273; CREATININE 0.4 mg/dL (0.7-1.2); ESTIMATED GFR > 60; GLUCOSE 133 mg/dL (70-104); POTASSIUM 3.9 mmol/L (3.5-5.1); SODIUM 136 mmol/L (136-145); TCO2 44 mmol/L (25-35)
[2019-04-10] MEDS: GLUCOPHAGE PO SCH ×2 (09:08→16:40)
[2019-04-10] MEDS: AMOXIL PO SCH ×2 (09:08→21:09)
[2019-04-10] MEDS ORDERED: DIAMOX IV ONE ×2 (09:49→16:00)
[2019-04-10] MEDS ORDERED: LASIX IV ONE ×2 (09:49→16:00)
[2019-04-10] MEDS ORDERED: STERILE WATER INJ. ONE ×2 (10:36→16:43)
--- NOTE | 2019-04-10 17:23 | PROGRESS NOTE ---
DATE: 04/10/2019 SUBJECTIVE: The patient is sitting at the edge of the bed on BiPAP. No acute events noted overnight. OBJECTIVE: Vital Signs: Temperature 98.7 degrees, blood pressure 119/48, heart rate 76, respirations 18, O2 saturation 94%. General: This is a morbidly obese male sitting at the edge of the bed on BiPAP. HEENT: Head normocephalic, atraumatic. Heart: S1, S2 normal. Lungs: Diminished breath sounds bilaterally. Abdomen: Morbidly obese, soft, nontender. Extremities: The patient has chronic venous stasis. LABORATORY DATA: Reviewed. ASSESSMENT AND PLAN: 1. Chronic hypoxemic and hypercapnic respiratory failure. Continue with the current treatment regimen as directed by Dr. Rutledge. 2. Streptococcus pharyngitis. Continue with antibiotic therapy. 3. Morbid obesity. The patient has been counseled about weight loss and proper diet. 4. Moderate pulmonary hypertension. Aware. 5. Pickwickian syndrome. Aware. 6. Obstructive sleep apnea. The patient will need a sleep study as outpatient. 7. Diabetes mellitus type 2. Continue on metformin and sliding scale insulin. 8. Deep vein thrombosis prophylaxis. Continue on Lovenox. cc: Casie Adorno MD MTDD
--- NOTE | 2019-04-10 18:48 | PULMONOLOGY PROGRESS NOTE ---
DATE: 04/10/2019 SUBJECTIVE: Patient is awake, alert, and conversant. He took his BiPAP off and does not want to wear it during the daytime. OBJECTIVE: Vital Signs: The patient has been afebrile for the last 24 hours. Intake and output are difficult to quantitate, given incontinent voids. Blood pressure 119/48, heart rate 76, respiratory rate 18, oxygen saturation 94%. HEENT: Pupils are equal and reactive. Oropharynx appears clear with significant decrease in posterior pharyngeal erythema. Neck: Supple. Chest: Distant breath sounds bilaterally without wheezing or rhonchi. Cardiac: S1, S2, with distant heart sounds. Abdomen: Obese and soft. Extremities: 1+ peripheral edema with chronic venous insufficiency. LABORATORIES: Arterial blood gas reveals pH of 7.33, pCO2 of 80, pO2 of 62. Sodium 136, potassium 3.9, chloride 91, bicarbonate 34, BUN 9, creatinine 0.4. IMPRESSION: A 33-year-old with: 1. Morbid obesity. 2. Pickwickian syndrome. 3. Obstructive sleep apnea. 4. Pulmonary hypertension. 5. Chronic hypoxemic and chronic hypercapnic respiratory failure. 6. Patient was given Lasix and Diamox yesterday, but even with the Diamox, his serum bicarbonate increased, suggesting significant diuresis. He has likely been hypoxemic and hypercapnic for a long time given his body habitus. RECOMMENDATIONS: 1. Additional Lasix and Diamox today. 2. Avoid sedatives and pain medicines. 3. Continue nocturnal BiPAP. 4. Patient will likely require oxygen, weight loss, and a sleep study. cc: Buddy Rutledge MD
[2019-04-10] MEDS: LOVENOX SUBQ SCH (21:09)
[2019-04-11] MEDS: DUONEB (A & A) INH SCH ×6 (03:35→23:15)
[2019-04-11 06:00] LABS: AGAP 9; BUN 12 mg/dL (8-22); CALCIUM 9.6 mg/dL (8.8-10.2); CHLORIDE 93 mmol/L (98-107); COSMO 274; CREATININE 0.5 mg/dL (0.7-1.2); ESTIMATED GFR > 60; GLUCOSE 147 mg/dL (70-104); MAGNESIUM 1.8 mg/dL (1.5-2.7); SODIUM 136 mmol/L (136-145); TCO2 34 mmol/L (25-35)
[2019-04-11] MEDS: HUMULIN R SUBQ SCH ×4 (06:00→20:52)
[2019-04-11] MEDS: PRILOSEC PO SCH (06:01)
[2019-04-11] MEDS: GLUCOPHAGE PO SCH ×2 (08:30→17:25)
[2019-04-11] MEDS: AMOXIL PO SCH ×2 (08:30→20:41)
[2019-04-11 09:26] LABS: BLOOD TYPE ARTERIAL; SAMPLE BLOOD
[2019-04-11 09:27] LABS: ALLEN TEST YES; BE 8.2 mmoll (-3.0-3.0); HCO3-(ACT) 31.2 mmoll (20.0-26.0); METHB 1.2 % (0.0-1.5); O2(CT) 21.8 mL/dL (15.0-23.0); PO2(98.6) 68 mmHg (60-100); SAO2 96.5 % (95.0-100.0); THB 16.7 g/dL (11.5-17.4); pH(98.6) 7.37 (7.35-7.45)
[2019-04-11 09:28] LABS: MODALITY CANNULA; PCO2(98.6) 63 mmHg (35-45)
--- NOTE | 2019-04-11 16:31 | PROGRESS NOTE ---
DATE: 04/11/2019 SUBJECTIVE: The patient is resting in bed. He has no complaints. OBJECTIVE: Vital Signs: Temperature 97.8 degrees, blood pressure 114/97, heart rate 85, respirations 19, O2 saturation 92% on 6 L nasal cannula. General: This is a morbidly obese male, lying in bed in no acute distress. Heart: S1, S2 normal. Regular rate and rhythm. Lungs: Equal air entry bilaterally. No crackles. No rales. Abdomen: Positive bowel sounds. Soft, obese. Nontender. Extremities: Trace edema. The patient has chronic venous stasis. Neurologic: The patient is alert and oriented x3. LABORATORIES: ABG: PH of 7.37, pCO2 of 63, PO2 of 68, bicarbonate 31. Sodium 136, potassium 4, chloride 93, CO2 of 34, BUN 12, creatinine 0.5, glucose 147, magnesium 1.8. ASSESSMENT AND PLAN: 1. Chronic hypoxemic and hypercapnic respiratory failure. Continue with the current treatment plan as directed by Dr. Rutledge. 2. Streptococcus pharyngitis. The patient is on antibiotic therapy. 3. Moderate pulmonary hypertension. Aware. 4. Pickwickian syndrome. Aware. 5. Morbid obesity. The patient has been counseled about weight loss and proper diet. 6. Obstructive sleep apnea. The patient will need a sleep study as outpatient. 7. Diabetes mellitus, type 2. Continue on metformin and sliding scale insulin. 8. Deep vein thrombosis prophylaxis. Continue on Lovenox. cc: Casie Adorno MD
[2019-04-11] MEDS ORDERED: LASIX IV ONE (16:59)
--- NOTE | 2019-04-11 20:33 | PULMONOLOGY PROGRESS NOTE ---
DATE: 04/11/2019 SUBJECTIVE: The patient is awake, alert, and conversant. He is without complaints. OBJECTIVE: Vital Signs: The patient has been afebrile over the last 24 hours. Blood pressure 115/54, heart rate 84, respiratory rate 16, oxygen saturation 90% on room air. HEENT: Pupils are equal and reactive. Oropharynx appears clear. Neck: Is supple. Chest: Reveals prolonged expiratory phase. Cardiac exam: S1, S2. Abdomen: Is obese and soft. Extremities: Reveal chronic venous insufficiency. IMPRESSION: 33-year-old with: 1. Obstructive sleep apnea. 2. Chronic hypoxemic and chronic hypercapnic respiratory failure. 3. Pickwickian syndrome and morbid obesity. 4. Streptococcal pharyngitis on day 6 of antibiotics. RECOMMENDATIONS: 1. One additional dose of Lasix today. 2. No additional pulmonary recommendations. The patient has maximized his hospital stay. He will likely need chronic oxygen therapy and does need an outpatient sleep study. cc: Buddy Rutledge MD
[2019-04-11] MEDS: LOVENOX SUBQ SCH (20:41)
[2019-04-12] MEDS: TYLENOL PO PRN ×2 (00:56→22:27)
[2019-04-12] MEDS: DUONEB (A & A) INH SCH ×6 (03:30→23:40)
[2019-04-12 05:40] LABS: HEMATOCRIT 51.4 % (42.0-52.0); HEMOGLOBIN 16.4 g/dL (14.0-18.0); MCH 30.1 PG (27-31); MCHC 31.9 g/dL (33-37); MCV 94.5 FL (81-99); MPV 10.4 FL (7.4-10.4); RBC 5.44 XMIL (4.7-6.1); RDW 15.3 % (11.5-14.5); WBC 11.17 X1000 (4.8-10.8)
[2019-04-12 06:00] LABS: AGAP 9; BUN 16 mg/dL (8-22); CALCIUM 9.6 mg/dL (8.8-10.2); CHLORIDE 92 mmol/L (98-107); COSMO 275; CREATININE 0.5 mg/dL (0.7-1.2); ESTIMATED GFR > 60; GLUCOSE 131 mg/dL (70-104); SODIUM 136 mmol/L (136-145); TCO2 35 mmol/L (25-35)
[2019-04-12] MEDS: PRILOSEC PO SCH (06:46)
[2019-04-12] MEDS: HUMULIN R SUBQ SCH ×4 (06:50→20:48)
[2019-04-12] MEDS: GLUCOPHAGE PO SCH ×2 (07:33→16:43)
[2019-04-12] MEDS: AMOXIL PO SCH ×3 (07:33→20:53)
[2019-04-12] MEDS ORDERED: LASIX IV ONE (08:26)
--- NOTE | 2019-04-12 15:07 | PROGRESS NOTE ---
DATE: 04/12/2019 SUBJECTIVE: The patient has no major complaints. He is kind of asleep and does not really want to talk to me. OBJECTIVE: Vital signs: Blood pressure is 118/55, heart rate 83, respiratory rate 20, temperature 98 degrees, 96% on 3 L. Cardiovascular: Regular rate and rhythm. Pulmonary: Bilateral breath sounds. Clear to auscultation. GI: Soft, nontender, nondistended. Extremities: He has brawny changes on his legs with varicose veins. ASSESSMENT AND PLAN: 1. Acute on chronic hypoxic hypercapnic respiratory failure due to Pickwickian syndrome. We are going to continue treatment. He seems to be stabilizing. 2. Streptococcus pharyngitis. He is currently on amoxicillin which was started on the . He has had 7 days of it now, may be a sufficient course but continue to follow. 3. Pulmonary hypertension, likely related to obesity hypoventilation syndrome. 4. Type 2 diabetes. Blood sugars are fairly well controlled just on metformin. DISPOSITION: He is a prisoner but he will likely need home oxygen and we also need a setup with P[facility]. Anticipate discharge tomorrow. cc: Larry Kelley MD MTDD
[2019-04-12] MEDS: LOVENOX SUBQ SCH (20:54)
[2019-04-13] MEDS: DUONEB (A & A) INH SCH ×2 (03:38→08:37)
[2019-04-13] MEDS: PRILOSEC PO SCH (06:08)
[2019-04-13] MEDS: HUMULIN R SUBQ SCH ×2 (06:12→11:41)
[2019-04-13 06:18] LABS: AGAP 3; BUN 14 mg/dL (8-22); CALCIUM 9.4 mg/dL (8.8-10.2); CHLORIDE 93 mmol/L (98-107); COSMO 278; CREATININE 0.5 mg/dL (0.7-1.2); ESTIMATED GFR > 60; GLUCOSE 138 mg/dL (70-104); POTASSIUM 4.2 mmol/L (3.5-5.1); SODIUM 138 mmol/L (136-145); TCO2 42 mmol/L (25-35)
[2019-04-13] MEDS: TYLENOL PO PRN (08:18)
[2019-04-13] MEDS: AMOXIL PO SCH (08:18)
[2019-04-13] MEDS: GLUCOPHAGE PO SCH (08:18)
[2019-04-13 11:10] VITALS: BP 138/78
[2019-04-13] MEDS ORDERED: TORADOL IV ONE (12:05)
--- NOTE | 2019-04-13 22:52 | DISCHARGE SUMMARY ---
ADMISSION DATE: 04/06/2019 DISCHARGE DATE: 04/13/2019 DISCHARGE DIAGNOSES: 1. Hypoxic respiratory failure associated with Pickwickian syndrome, obesity, hypoventilation. 2. Streptococcus pharyngitis. Strep A pharyngitis. 3. Pulmonary hypertension. 4. Obesity hypoventilation syndrome. 5. Type 2 diabetes. CONSULTATIONS: Dr. Rutledge, pulmonary. PROCEDURES: None. DIAGNOSTIC STUDIES: Echocardiogram on 04/06 showed a moderate pulmonary hypertension, hyperdynamic left ventricle with hypertrophy and an EF of 75%. Venous ultrasounds were negative for DVT. HOSPITAL COURSE: Briefly, this is a 33-year-old incarcerated in [facility] coming in with shortness of breath. He is 476 pounds with a BMI of 66. Obviously, clinically morbidly obese. He came in with shortness of breath and he was placed on BiPAP. Dr. Rutledge was consulted. He had strep pharyngitis. He was given penicillin and Decadron. Dr. Rutledge was consulted and made adjustments in his medications. Recommended smoking cessation. He slowly improved avoiding sedation. He was given Lasix. He was given long-term BiPAP. He will need weight loss and a sleep study. He was monitored. Dr. Rutledge felt on the that he did not need necessarily further treatment in the hospital and he stabilized. He did qualify for home oxygen which was set up. Currently on 3 L. His heart rate is 98. Blood pressure 138/78, and he was felt stable for discharge. He will need to have fasting blood sugars a.c. and at bedtime. He will need amoxicillin. We are going to do 500 q.12 for another 7 days, DuoNeb q.4, Glucophage 500 b.i.d. DISCHARGE CONDITION: Stable. He will need an outpatient sleep study to evaluate for positive pressure ventilation, especially at night and encouraged weight loss. TIME SPENT: 35 minute discharge for setting up oxygen. cc: Larry Kelley MD [facility]
== END 2019-04-13 14:17 | DRG 189 ==
LOC: ED 10:01 → SUATTDRO 15:10 → 3S 15:10
PROVIDERS: ATTEND Internal Medicine
CPT/HCPCS: 70360; 71020; 71046; 80048; 80053; 81001; 82550; 82805; 82948; 83036; 83605; 83735; 83880; 84484; 85025; 85027; 85379; 85610; 85730; 87040; 87430; 93306; 93970; 94640; 94660; 94761; 94799; 96372; 96374; 99285; A9270; C8929; J0561; J1120; J1650; J1885; J1940; Q9957; XXXXX